=== PATIENT | female | born 1995 | race Two or more races ===

== ENCOUNTER 2025-02-06 21:46 | Emergency (ER) | payer OTHER ==
[~2025-02-06] VITALS: Ht 162.6 cm; Wt 68.0 kg
[2025-02-06] MEDS ORDERED: ONDANSETRON HCL/PF 4 MG/2 ML VIAL ONE (22:38)
[2025-02-06] MEDS: IV NS 0.9% 1,000 ML BAG IV ONE (22:56)
[2025-02-06] MEDS: ONDANSETRON HCL/PF 4 MG/2 ML VIAL IVP ONE (22:56)
[2025-02-06 23:03] LABS: RED BLOOD CELL COUNT(AUTO) 4.61 MIL/uL (4.0-5.2); RED CELL DISTRIBUTION WIDTH 12.3 % (11.5-15.0); WHITE BLOOD COUNT (AUTO) 9.2 K/uL (4.3-11.0)
[2025-02-06 23:05] LABS: APPEARANCE,URINE CLEAR (CLEAR); BLOOD, URINE NEGATIVE Ery/uL (NEGATIVE); LEUKOCYTE ESTERASE ,URINE TRACE (NEGATIVE); NITRITE, URINE NEGATIVE (NEGATIVE); UGLUCOSE NEGATIVE (NEGATIVE)
[2025-02-06 23:11] LABS: CALCIUM, SERUM 9.4 mg/dL (8.5-10.1); CREATININE 0.7 mg/dL (0.6-1.3); SODIUM SERUM 134.0 mmol/L (136-145); UREA NITROGEN, BLOOD 10.0 mg/dL (7-18)
[2025-02-06 23:13] LABS: ADD URINE CULTURE YES; SQUAMOUS EPITHELIAL CELL,UR Moderate /HPF (None Seen)
[2025-02-06 23:16] LABS: INR 0.98 (0.91-1.10)
[2025-02-06 23:31] LABS: PLATELET COUNT (AUTO) 182 K/uL (150-450)
[2025-02-06 23:52] LABS: ASPARTATE AMINOTRANSFERASE 19.0 U/L (15-37); PREGNANCY TEST SERUM QUAN 48455.0 mIU/mL (0-6); TOTAL PROTEIN, SERUM 8.3 g/dL (6.4-8.2)
[2025-02-07] MEDS ORDERED: NITR100C6 PO (00:06)
[2025-02-07 00:39] VITALS: BP 96/60; TEMP 98.5; O2SAT 100
== END 2025-02-07 00:39 | disposition home or self-care (01) ==
LOC: ER 21:49
DX: O21.0 Mild hyperemesis gravidarum (principal); O23.41 Unspecified infection of urinary tract in pregnancy, first trimester; R10.2 Pelvic and perineal pain; Z88.6 Allergy status to analgesic agent; Z60.2 Problems related to living alone; Z3A.12 12 weeks gestation of pregnancy
CPT/HCPCS: 99285; 96374; 76856; 96361; 85025; 80048; 87086; 80076; 81001; 36415; 85730; 85240; 84702; J2405; J7030